=== PATIENT | female | born 1990 | race Two or more races ===

== ENCOUNTER 2016-09-01 17:30 | Emergency (ER) | payer SELFPAY ==
[~2016-09-01] VITALS: Ht 157.5 cm; Wt 59.0 kg
[2016-09-01 17:54] VITALS: BP 112/70
== END 2016-09-01 23:40 | disposition left against medical advice (07) ==
LOC: ER 17:36 → EDBD 17:36 → ER 23:40
DX: S91.119A Laceration without foreign body of unspecified toe without damage to nail, initial encounter (principal); W21.00XA Struck by hit or thrown ball, unspecified type, initial encounter; Y93.89 Activity, other specified; Y99.9 Unspecified external cause status; Y92.89 Other specified places as the place of occurrence of the external cause; Z53.21 Procedure and treatment not carried out due to patient leaving prior to being seen by health care provider